=== PATIENT | female | born 1985 | race Caucasian/White ===

== ENCOUNTER 2022-09-18 03:47 | Day surgery (SDC) | payer OTHER ==
[2022-09-16 09:53] VITALS: BMI 26.2
[2022-09-18] MEDS ORDERED: MIDAZOLAM HCL 2 MG/2 ML SINGLE DOSE VIAL ONE (07:51)
[2022-09-18] MEDS ORDERED: SUCCINYLCHOLINE CHLORIDE 200 MG/10 ML SYRINGE ONE (07:52)
[2022-09-18] MEDS ORDERED: ROCURONIUM BROMIDE 50 MG/5 ML SYRINGE ONE (07:52)
[2022-09-18] MEDS ORDERED: PROPOFOL 20 ML ONE (07:52)
[2022-09-18] MEDS ORDERED: ceFAZolin 2 GRAM PREMIX BAG IVPB ONE (08:20)
[2022-09-18] MEDS ORDERED: ceFAZolin SODIUM 1 GM VIAL ONE (08:22)
[2022-09-18] MEDS ORDERED: DEXAMETHASONE SOD PHOSPHATE 4 MG/1 ML VIAL ONE (08:22)
[2022-09-18] MEDS ORDERED: ONDANSETRON 4 MG/2 ML VIAL ONE (08:22)
[2022-09-18] MEDS ORDERED: LIDOCAINE HCL/PF 2% SDV 5ML VIAL ONE (08:22)
[2022-09-18] MEDS ORDERED: KETOROLAC TROMETHAMINE 30 MG/1 ML VIAL ONE (08:22)
[2022-09-18] MEDS ORDERED: SUGAMMADEX SODIUM 200 MG/2 ML VIAL ONE (08:35)
[2022-09-18] MEDS ORDERED: IBUPROFEN 600 MG TABLET (FP) PO PRN (09:34)
[2022-09-18] MEDS ORDERED: IBUPROFEN 800 MG/8 ML IJ IVPB PRN (09:34)
[2022-09-18] MEDS ORDERED: ACETAMINOPHEN 325 MG TABLET (FP) PO PRN (09:34)
[2022-09-18] MEDS ORDERED: oxyCODONE HCL 5 MG TABLET PO PRN ×2 (09:36→09:42)
[2022-09-18] MEDS ORDERED: PROMETHAZINE HCL 25 MG/1 ML VIAL IVPB PRN (09:42)
[2022-09-18] MEDS ORDERED: ONDANSETRON 4 MG/2 ML VIAL IVPUSH PRN (09:42)
[2022-09-18] MEDS ORDERED: LACTATED RINGERS SOLUTION 1,000 ML IV SCH ×2 (09:45)
[2022-09-18] MEDS ORDERED: oxyCODONE HCL 5 MG TABLET ONE (11:40)
[2022-09-18] MEDS ORDERED: oxyCODONE HCL 5 MG TABLET PO ONE (11:44)
[2022-09-18 11:51] VITALS: RESP 16
[2022-09-18 16:17] VITALS: BP 142/82; PULSE 97; TEMP 98.7
== END 2022-09-18 15:30 | disposition home or self-care (01) ==
LOC: JASU-SURG 03:47
PROVIDERS: ATTEND Obstetrics & Gynecology
PROC: 0UB74ZZ Excision of Bilateral Fallopian Tubes, Percutaneous Endoscopic Approach (ICD-10-PCS; principal; 2022-09-18 08:00)
PROC: 0UBM0ZZ Excision of Vulva, Open Approach (ICD-10-PCS; 2022-09-18 08:00)
DX: Z30.2 Encounter for sterilization (principal); N90.89 Other specified noninflammatory disorders of vulva and perineum
CPT/HCPCS: 88305-TC; 94760